=== PATIENT | male | born 1970 | race Caucasian/White ===

== ENCOUNTER 2016-12-11 03:07 | Emergency (ER) | payer OTHER ==
[2016-12-11] MEDS ORDERED: Sodium Chloride 0.9% 1000 ML 1,000 ML IV SCH (03:15)
--- NOTE | 2016-12-11 03:24 | ERPHSYRPT ---
- History of Present Illness Time Seen by Provider: 12/11/16 03:08 Source: patient, family (), EMS Exam Limitations: no limitations Physician History: AT WORK([employer]) ABOUT 70 MINUTES AGO PT WAS STANDING WORKING ON A VEHICLE WHEN HE SUDDENLY LOST CONSCIOUSNESS, FELL BACK AND HAD STIFFENING OF HIS BODY(UNKNOWN HOW LONG EPISODE LASTED). PT DENIES PREVIOUS SYNCOPE OR SEIZURE. PT DENIES CHEST PAIN, NECK PAIN, BACK PAIN, HEADACHE, NAUSEA, VOMITING , ABDOMINAL PAIN, SHORTNESS OF AIR, TINGLING/NUMBNESS, WEAKNESS. PT'S STATES PT POSSIBLY HAD A SEIZURE 2 YEARS AGO WHEN HE FELL AND FRACTURED HIS SHOULDER. PT WAS NEVER PLACED ON ANY SEIZURE MEDICATIONS. Allergies/Adverse Reactions: No Known Drug Allergies Allergy (Verified 12/11/16 03:46) Home Medications: Metoprolol Tartrate 50 mg PO DAILY 11/09/12 [History] Hydrocodon/Ibupr 7.5mg/200mg [Vicoprofen 7.5mg/200mg Tablet] 1 tab PO Q6HPRN PRN 12/11/16 [History] Lisinopril 10 mg [Zestril 10 MG] 10 mg PO DAILY 12/11/16 [History] Hx Tetanus, Diphtheria Vaccination/Date Given: No Hx Influenza Vaccination/Date Given: No Hx Pneumococcal Vaccination/Date Given: No - Past Medical History Pertinent Past Medical History: Yes Cardiac History: Hypertension Other Medical History: left kidney removed - Past Surgical History Past Surgical History: Yes Genitourinary: Kidney Surgery Other Surgical History: KIDNEY REMOVAL - Social History Smoking Status: Current some day smoker Exposure to second hand smoke: Yes Drug Use: none Patient Lives Alone: No - Review of Systems Constitutional: No Fever Respiratory: No Cough, No Dyspnea Cardiac: No Chest Pain Abdominal/Gastrointestinal: No Abdominal Pain, No Nausea, No Vomiting Musculoskeletal: No Back Pain, No Neck Pain Neurological: Other (SYNCOPE/SEIZURE TODAY), No Focal Weakness, No Headache, No Sensory Changes, No Speech Changes Endocrine: No Excessive Sweating All Other Systems: Reviewed and Negative Physical Exam - Nursing Vital Signs Nursing Vital Signs: Initial Vital Signs Temperature 97.8 F Temperature Source Oral Pulse Rate 83 Respiratory Rate 14 Blood Pressure [] 145/83 Pain Intensity 2 - [place] Coma Scale Best Eye Response ([place]): (4) open spontaneously Best Verbal Response ([place]): (5) oriented Best Motor Response ([place]): (6) obeys commands [place] Total: 15 - Physical Exam General Appearance: no apparent distress, alert Eye Exam: bilateral eye: PERRL, EOMI Ears, Nose, Throat Exam: pharynx normal, moist mucous membranes Neck Exam: normal inspection, non-tender, full range of motion Respiratory: lungs clear Cardiovascular: normal heart sounds Gastrointestinal: soft, normal bowel sounds Back Exam: normal range of motion, No vertebral tenderness Extremity Exam: normal inspection, normal range of motion, No pedal edema Peripheral Pulses: dorsalis-pedis (R): 3+, dorsalis-pedis (L): 3+ 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, 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, 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 SMALL LEFT PARIETAL SCALP HEMATOMA. NO UNDERLYING FRACTURE.) Ordered Tests: Active Orders 24 hr Category Date Time Status Accucheck STAT Care 12/11/16 03:15 Active Clean Catch Urine Specimen STAT Care 12/11/16 03:15 Active EKG-ER Only STAT Care 12/11/16 03:17 Active IV Insertion STAT Care 12/11/16 03:15 Active Pulse Oximetry (ED) STAT Care 12/11/16 03:15 Active Seizure Precautions -SCCHED STAT Care 12/11/16 03:15 Active CHEST 1 VIEW (PORTABLE) Stat Exams 12/11/16 03:17 Taken HEAD WITHOUT CONTRAST [CT] Stat Exams 12/11/16 03:16 Taken AMYLASE Stat Lab 12/11/16 03:22 Completed CBC W DIFF Stat Lab 12/11/16 03:22 Completed CMP Stat Lab 12/11/16 03:22 Completed LIPASE Stat Lab 12/11/16 03:22 Completed TROPONIN Stat Lab 12/11/16 03:22 Completed UA W/ MICROSCOPIC Stat Lab 12/11/16 04:52 Completed Urine Triage Profile Stat Lab 12/11/16 04:52 Completed Medication Summary Generic Name Dose Route Start Last Admin Trade Name Edith PRN Reason Stop Dose Admin Sodium Chloride 1,000 mls @ 100 mls/hr 12/11/16 03:15 12/11/16 04:14 Sodium Chloride 0.9% 1000 Ml IV 01/10/17 03:14 100 mls/hr .Q10H AYAN Administration Discontinued Medications Generic Name Dose Route Start Last Admin Trade Name Freq PRN Reason Stop Dose Admin Fosphenytoin Sodium Confirm 12/11/16 04:10 Cerebyx 50 Mg/Ml Administered 12/11/16 04:11 Dose 1,000 mg .ROUTE .STK-MED ONE Sodium Chloride Confirm 12/11/16 04:00 Sodium Chloride 0.9% 1000 Ml Administered 12/11/16 04:01 Dose 1,000 mls @ ud .ROUTE .STK-MED ONE Fosphenytoin Sodium 1,000 mg/ 120 mls @ 120 mls/hr 12/11/16 04:05 12/11/16 04 :20 Sodium Chloride IV 12/11/16 05:04 120 mls/hr STAT ONE Administration Sodium Chloride Confirm 12/11/16 04:09 Sodium Chloride 0.9% 100 Ml Ivpb Administered 12/11/16 04:10 Dose 100 mls @ ud IV .STK-MED ONE Lab/Rad Data: Laboratory Result Diagrams 12/11/16 03:22 12/11/16 03:22 Laboratory Results 12/11/16 12/11/16 12/11/16 Range/Units 04:52 04:52 03:22 WBC (4.0-10.5) K/mm3 RBC (4.1-5.6) M/mm3 Hgb (12.5-18.0) gm/dl Hct (42-50) % MCV (78-100) fl MCH (26-32) pg MCHC (32-36) g/dl RDW (11.5-14.0) % Plt Count (150-450) K/mm3 MPV (6-9.5) fl Gran % (36.0-66.0) % Lymphocytes % (24.0-44.0) % Monocytes % (0.0-12.0) % Eosinophils % (0.00-5.0) % Basophils % (0.0-0.4) % Basophils # (0-0.4) Sodium (136-145) mEq/L Potassium (3.5-5.1) mEq/L Chloride (98-107) mEq/L Carbon Dioxide (21-32) mEq/L Anion Gap (5-15) MEQ/L BUN (9-20) mg/dL Creatinine (0.55-1.30) mg/dl Estimated GFR ML/MIN Glucose (70-110) MG/DL Calcium (8.5-10.1) mg/dL Total Bilirubin (0.2-1.0) mg/dL AST (15-37) U/L ALT (12-78) U/L Alkaline Phosphatase (46-116) U/L Troponin I < 0.017 (0.000-0.056) ng/ml Serum Total Protein (6.4-8.2) gm/dL Albumin (3.4-5.0) g/dL Amylase 62 (25-115) U/L Lipase 172 (73-393) U/L Ur Collection Type CLEAN CATCH Urine Color YELLOW (YELLOW) Urine Appearance CLEAR (CLEAR) Urine pH 5.5 (5-6) Ur Specific [place] 1.025 (1.005-1.025) Urine Protein 30 (Negative) Urine Glucose (UA) NEGATIVE (NEGATIVE) mg/dL Urine Ketones NEGATIVE (NEGATIVE) Urine Nitrite NEGATIVE (NEGATIVE) Urine Bilirubin NEGATIVE (NEGATIVE) Urine Urobilinogen 1 (0-1) mg/dL Urine WBC (Auto) NEGATIVE (NEGATIVE) Urine RBC (Auto) TRACE-LYSED (0-5) Neville/ul Urine Microscopic RBC 0-2 (0-2) /HPF Ur Epithelial Cells RARE (FEW) /HPF Urine Bacteria RARE (NEGATIVE) /HPF Urine Opiates Level NEG. (NEGATIVE) Ur Methadone NEG. (NEGATIVE) Urine Barbiturates NEG. (NEGATIVE) Ur Phencyclidine (PCP) NEG. (NEGATIVE) Urine Amphetamine NEG. (NEGATIVE) U Benzodiazepine Level NEG. (NEGATIVE) Urine Cocaine NEG. (NEGATIVE) Urine Marijuana (THC) NEG. (NEGATIVE) Specimen Received 0130 0450 12/11/16 12/11/16 Range/Units 03:22 03:22 WBC 7.1 (4.0-10.5) K/mm3 RBC 4.81 (4.1-5.6) M/mm3 Hgb 14.4 (12.5-18.0) gm/dl Hct 44.5 (42-50) % MCV 92.5 (78-100) fl MCH 29.9 (26-32) pg MCHC 32.4 (32-36) g/dl RDW 12.7 (11.5-14.0) % Plt Count 248 (150-450) K/mm3 MPV 10.2 H (6-9.5) fl Gran % 65.1 (36.0-66.0) % Lymphocytes % 22.2 L (24.0-44.0) % Monocytes % 10.7 (0.0-12.0) % Eosinophils % 1.7 (0.00-5.0) % Basophils % 0.3 (0.0-0.4) % Basophils # 0.02 (0-0.4) Sodium 144 (136-145) mEq/L Potassium 4.0 (3.5-5.1) mEq/L Chloride 104 (98-107) mEq/L Carbon Dioxide 23.5 (21-32) mEq/L Anion Gap 20.2 H (5-15) MEQ/L BUN 16 (9-20) mg/dL Creatinine 1.06 (0.55-1.30) mg/dl Estimated GFR > 60 ML/MIN Glucose 88 (70-110) MG/DL Calcium 9.0 (8.5-10.1) mg/dL Total Bilirubin 0.6 (0.2-1.0) mg/dL AST 30 (15-37) U/L ALT 52 (12-78) U/L Alkaline Phosphatase 65 (46-116) U/L Troponin I (0.000-0.056) ng/ml Serum Total Protein 7.3 (6.4-8.2) gm/dL Albumin 4.2 (3.4-5.0) g/dL Amylase (25-115) U/L Lipase (73-393) U/L Ur Collection Type Urine Color (YELLOW) Urine Appearance (CLEAR) Urine pH (5-6) Ur Specific [place] (1.005-1.025) Urine Protein (Negative) Urine Glucose (UA) (NEGATIVE) mg/dL Urine Ketones (NEGATIVE) Urine Nitrite (NEGATIVE) Urine Bilirubin (NEGATIVE) Urine Urobilinogen (0-1) mg/dL Urine WBC (Auto) (NEGATIVE) Urine RBC (Auto) (0-5) Neville/ul Urine Microscopic RBC (0-2) /HPF Ur Epithelial Cells (FEW) /HPF Urine Bacteria (NEGATIVE) /HPF Urine Opiates Level (NEGATIVE) Ur Methadone (NEGATIVE) Urine Barbiturates (NEGATIVE) Ur Phencyclidine (PCP) (NEGATIVE) Urine Amphetamine (NEGATIVE) U Benzodiazepine Level (NEGATIVE) Urine Cocaine (NEGATIVE) Urine Marijuana (THC) (NEGATIVE) Specimen Received - Departure Time of Disposition: 05:57 Departure Disposition: Home Clinical Impression: SYNCOPE, SEIZURE, HEAD CONTUSION, HTN Condition: Fair Critical Care Time: No Referrals: SHAWANDA BROCK [Primary Care Provider] - Instructions: Seizure Disorder -- Adult Additional Instructions: FOLLOW UP WITH PRIVATE DOCTOR TODAY. DO NOT DRIVE OR CLIMB UNTIL CLEARED BY PRIVATE DOCTOR. Prescriptions: Phenytoin Sod Extended 100 mg* [Dilantin 100 MG] 100 mg PO BID #60 capsule
[2016-12-11 03:30] LABS: BASOPHIL % 0.3 % (0.0-0.4); Eosinophil % 1.7 % (0.00-5.0); Granulocytes % 65.1 % (36.0-66.0); Lymphocytes % 22.2 % (24.0-44.0); Mean Cell Volume 92.5 fl (78-100); Mean Corpuscular Hemoglobin 29.9 pg (26-32); Mean Platelet Volume 10.2 fl (6-9.5); Monocytes % 10.7 % (0.0-12.0); Platelet Count 248 K/mm3 (150-450); Red Blood Count 4.81 M/mm3 (4.1-5.6); Red Cell Distribution Width 12.7 % (11.5-14.0); White Blood Count 7.1 K/mm3 (4.0-10.5)
[2016-12-11] MEDS ORDERED: Sodium Chloride 0.9% 1000 ML 1,000 ML ONE (04:00)
[2016-12-11] MEDS ORDERED: cereBYX 50 MG/ML*** 1,000 MG in Sodium Chloride 0.9% 100 ML IVPB 100 ML IV ONE (04:05)
[2016-12-11] MEDS ORDERED: Sodium Chloride 0.9% 100 ML IVPB 100 ML IV ONE (04:09)
[2016-12-11] MEDS ORDERED: cereBYX 50 MG/ML ONE (04:10)
[2016-12-11 04:11] LABS: ALBUMIN 4.2 g/dL (3.4-5.0); ALKALINE PHOSPHATASE 65 U/L (46-116); ANION GAP 20.2 MEQ/L (5-15); BILIRUBIN,TOTAL 0.6 mg/dL (0.2-1.0); BLOOD UREA NITROGEN 16 mg/dL (9-20); CHLORIDE 104 mEq/L (98-107); Carbon Dioxide 23.5 mEq/L (21-32); Glucose 88 MG/DL (70-110); SGOT/AST 30 U/L (15-37); SGPT/ALT 52 U/L (12-78); SODIUM 144 mEq/L (136-145); Total Protein 7.3 gm/dL (6.4-8.2)
[2016-12-11 04:20] LABS: LIPASE 172 U/L (73-393)
[2016-12-11 04:23] LABS: TROPONIN < 0.017 ng/ml (0.000-0.056)
[2016-12-11 05:52] LABS: Collection Type CLEAN CATCH
[2016-12-11 05:53] LABS: COMPLETE URINE MICROSCOPIC? YES; Ph 5.5 (5-6)
[2016-12-11 05:55] LABS: Bacteria RARE /HPF (NEGATIVE); Epithelial Cells RARE /HPF (FEW)
[2016-12-11 06:47] VITALS: BP 150/97; PULSE 78; O2SAT 95
--- NOTE | 2016-12-11 08:39 | XRAY ---
Indication: Seizure and syncope. Multiple contiguous axial images obtained through the head without contrast. Comparison: None Normal-appearing brain parenchyma, ventricles, and bony calvarium. Small left parietal scalp hematoma near the vertex. Visualized paranasal sinuses and mastoid air cells are pneumatized and clear. Impression: Left-sided scalp hematoma. No acute intracranial abnormalities. Comment: Preliminary interpretation was made by [facility]. No discrepancy. CT DI 49.71
--- NOTE | 2016-12-11 08:39 | XRAY ---
Indication: Seizure. Syncope. Comparison: None Portable chest demonstrates a few calcified granulomas. Remaining heart, lungs, and bony thorax normal.
== END 2016-12-11 06:10 | disposition home or self-care (01) ==
LOC: ED 03:07
DX: R55 Syncope and collapse (principal); R56.9 Unspecified convulsions; S00.93XA Contusion of unspecified part of head, initial encounter; S00.01XA Abrasion of scalp, initial encounter; I10 Essential (primary) hypertension; W18.39XA Other fall on same level, initial encounter
CPT/HCPCS: 36415; 70450; 71010; 80053; 80307; 81000; 82150; 82962; 83690; 84484; 85025; 93005; 96360; 96361; 99283; Q2009

== ENCOUNTER 2020-02-01 06:35 | Emergency (ER) | payer BC, OTHER ==
--- NOTE | 2020-02-01 06:49 | ERPHSYRPT ---
- History of Present Illness Source: patient, EMS Exam Limitations: intoxication Hx Tetanus, Diphtheria Vaccination/Date Given: No Hx Influenza Vaccination/Date Given: No Hx Pneumococcal Vaccination/Date Given: No <ЕЛЕНА ZAMAN - Last Filed: 02/01/20 07:13> <LINA RACHEL - Last Filed: 02/01/20 08:31> - History of Present Illness Time Seen by Provider: 02/01/20 06:35 Physician History: About 1 hour ago ems was called because pt had decreased responsiveness. blood glucose per ems was 67, pt was given 1/2 amp of d-50 after which blood glucose increased to 164. pt states he drank almost 1/5 of whisky tonight; denies cough , fever, chest pain, shortness of air, abdominal pain, weakness, tingling/ numbness; admits to headache. (ЕЛЕНА ZAMAN) Allergies/Adverse Reactions: No Known Drug Allergies Allergy (Verified 02/01/20 07:15) Home Medications: No Reportable Medications [No Reported Medications] 02/01/20 [History] Travel Risk - International Travel Have you traveled outside of the country in past 3 weeks: No Have you or anyone close to you been diagnosed with or: No Do your reside in a community with a known COVID-19 case?: No - Coronavirus Screening Has patient experienced Coronavirus symptoms: No <ЕЛЕНА ZAMAN - Last Filed: 02/01/20 07:13> - Review of Systems Constitutional: No Fever Ears, Nose, & Throat: No Throat Pain Respiratory: No Dyspnea Cardiac: No Chest Pain Abdominal/Gastrointestinal: No Abdominal Pain, No Nausea, No Vomiting Genitourinary Symptoms: No Dysuria Skin: No Rash Neurological: Headache (today), Other (decreased responsiveness.) Psychological: Alcohol Abuse All Other Systems: Reviewed and Negative <ЕЛЕНА ZAMAN - Last Filed: 02/01/20 07:13> - Past Medical History Pertinent Past Medical History: Yes Cardiac History: Hypertension Other Medical History: left kidney removed - Past Surgical History Past Surgical History: Yes Genitourinary: Kidney Surgery Other Surgical History: KIDNEY REMOVAL - Social History Smoking Status: Current some day smoker Exposure to second hand smoke: Yes Drug Use: none Patient Lives Alone: No <ЕЛЕНА ZAMAN - Last Filed: 02/01/20 07:13> - Physical Exam General Appearance: lethargy Eye Exam: bilateral eye: PERRL, EOMI Ears, Nose, Throat Exam: pharynx normal Neck Exam: normal inspection Respiratory: lungs clear Cardiovascular: normal heart sounds Gastrointestinal: soft, normal bowel sounds Back Exam: other (fair rom) Extremity Exam: No pedal edema Peripheral Pulses: dorsalis-pedis (R): 2+, dorsalis-pedis (L): 2+ Mental Status: No 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 (oriented to person only.) 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, tongue midline, No facial droop Motor/Sensory: no motor deficit, no sensory deficit Skin Exam: warm, dry SpO2 Interpretation: borderline oxygenation SpO2: 93 O2 Delivery: Room Air <ЕЛЕНА ZAMAN - Last Filed: 02/01/20 07:13> <LINA RACHEL - Last Filed: 02/01/20 08:31> - Nursing Vital Signs Nursing Vital Signs: Initial Vital Signs Temperature 97.5 F 02/01/20 06:38 Pulse Rate 111 H 02/01/20 06:38 Respiratory Rate 16 02/01/20 06:38 Blood Pressure 174/123 02/01/20 06:38 O2 Sat by Pulse Oximetry 93 L 02/01/20 06:38 - Course Nursing assessment & vital signs reviewed: Yes EKG Interpreted by Me: RATE (108), Sinus Tach, NORMAL AXIS, Non-specific ST Changes, Other (PVC) <JUNIEЕЛЕНА - Last Filed: 02/01/20 07:13> <LINA RACHEL - Last Filed: 02/01/20 08:31> Ordered Tests: Active Orders 24 hr Category Date Time Status Accucheck STAT Care 02/01/20 06:51 Active EKG-ER Only STAT Care 02/01/20 06:49 Active IV Insertion STAT Care 02/01/20 06:49 Active CHEST 1 VIEW (PORTABLE) Stat Exams 02/01/20 06:50 Taken HEAD WITHOUT CONTRAST [CT] Stat Exams 02/01/20 06:52 Taken ACETAMINOPHEN Stat Lab 02/01/20 07:05 Completed AMYLASE Stat Lab 02/01/20 07:05 Completed CBC W DIFF Stat Lab 02/01/20 07:05 Completed CMP Stat Lab 02/01/20 07:05 Completed ETHYL ALCOHOL Stat Lab 02/01/20 07:05 Completed LIPASE Stat Lab 02/01/20 07:05 Completed TROPONIN Q3H Lab 02/01/20 07:05 Completed TROPONIN Q3H Lab 02/01/20 10:00 Ordered TROPONIN Q3H Lab 02/01/20 13:00 Ordered TROPONIN Q3H Lab 02/01/20 16:00 Ordered TROPONIN Q3H Lab 02/01/20 19:00 Ordered UA W/RFX UR CULTURE Stat Lab 02/01/20 06:49 Uncollected Urine Triage Profile Stat Lab 02/01/20 06:49 Uncollected Medication Summary Generic Name Dose Route Start Last Admin Trade Name Freq PRN Reason Stop Dose Admin Sodium Chloride 1,000 mls @ 100 mls/hr 02/01/20 07:00 02/01/20 07:56 Sodium Chloride 0.9% 1000 Ml IV 03/02/20 06:59 999 mls/hr .Q10H AYAN Administration Lab/Rad Data: Laboratory Result Diagrams 02/01/20 07:05 02/01/20 07:05 Laboratory Results 02/01/20 02/01/20 02/01/20 Range/Units 07:05 07:05 07:05 WBC (4.0-10.5) K/mm3 RBC (4.1-5.6) M/mm3 Hgb (12.5-18.0) gm/dl Hct (42-50) % MCV (78-100) fl MCH (26-32) pg MCHC (32-36) g/dl RDW (11.5-14.0) % Plt Count (150-450) K/mm3 MPV (7.5-11.0) fl Gran % (36.0-66.0) % Eos # (Auto) (0-0.5) Absolute Lymphs (auto) (1.0-4.6) Absolute Monos (auto) (0.0-1.3) Lymphocytes % (24.0-44.0) % Monocytes % (0.0-12.0) % Eosinophils % (0.00-5.0) % Basophils % (0.0-0.4) % Absolute Granulocytes (1.4-6.9) Basophils # (0-0.4) Sodium 150 H* (137-145) mmol/L Potassium 4.0 (3.5-5.1) mmol/L Chloride 111 H (98-107) mmol/L Carbon Dioxide 26 (22-30) mmol/L Anion Gap 16.8 H (5-15) MEQ/L BUN 12 (9-20) mg/dL Creatinine 0.78 (0.66-1.25) mg/dL Estimated GFR > 60.0 ML/MIN Glucose 119 H (74-106) mg/dL Calcium 8.7 (8.4-10.2) mg/dL Total Bilirubin 0.40 (0.2-1.3) mg/dL AST 51 (17-59) U/L ALT 29 (0-50) U/L Alkaline Phosphatase 93 (38-126) U/L Troponin I < 0.012 (0.000-0.034) ng/mL Serum Total Protein 8.1 (6.3-8.2) g/dL Albumin 4.8 (3.5-5.0) g/dL Amylase 78 (30-110) U/L Lipase 178 (23-300) U/L Acetaminophen < 10 L (10-30) ug/ml Ethyl Alcohol 467 H (0-10) mg/dL 01/31/ Range/Units 07:05 WBC 9.9 (4.0-10.5) K/mm3 RBC 4.89 (4.1-5.6) M/mm3 Hgb 15.8 (12.5-18.0) gm/dl Hct 47.1 (42-50) % MCV 96.3 (78-100) fl MCH 32.3 H (26-32) pg MCHC 33.5 (32-36) g/dl RDW 13.3 (11.5-14.0) % Plt Count 225 (150-450) K/mm3 MPV 10.1 (7.5-11.0) fl Gran % 58.3 (36.0-66.0) % Eos # (Auto) 0.37 (0-0.5) Absolute Lymphs (auto) 3.10 (1.0-4.6) Absolute Monos (auto) 0.66 (0.0-1.3) Lymphocytes % 31.2 (24.0-44.0) % Monocytes % 6.6 (0.0-12.0) % Eosinophils % 3.7 (0.00-5.0) % Basophils % 0.2 (0.0-0.4) % Absolute Granulocytes 5.79 (1.4-6.9) Basophils # 0.02 (0-0.4) Sodium (137-145) mmol/L Potassium (3.5-5.1) mmol/L Chloride (98-107) mmol/L Carbon Dioxide (22-30) mmol/L Anion Gap (5-15) MEQ/L BUN (9-20) mg/dL Creatinine (0.66-1.25) mg/dL Estimated GFR ML/MIN Glucose (74-106) mg/dL Calcium (8.4-10.2) mg/dL Total Bilirubin (0.2-1.3) mg/dL AST (17-59) U/L ALT (0-50) U/L Alkaline Phosphatase (38-126) U/L Troponin I (0.000-0.034) ng/mL Serum Total Protein (6.3-8.2) g/dL Albumin (3.5-5.0) g/dL Amylase (30-110) U/L Lipase (23-300) U/L Acetaminophen (10-30) ug/ml Ethyl Alcohol (0-10) mg/dL <ЕЛЕНА ZAMAN - Last Filed: 02/01/20 07:13> - Progress Progress: improved Counseled pt/family regarding: drug and/or alcohol abuse, lab results, diagnosis , need for follow-up, rad results <LINA RACHEL - Last Filed: 02/01/20 08:31> - Progress Progress Note: 02/01/20 08:29 feeling better, no more confusion. at bedside (VIRGINIE,LINA) <ЕЛЕНА ZAMAN - Last Filed: 02/01/20 07:13> - Departure Departure Disposition: Home Critical Care Time: Yes Critical Care Time(excluding separately billable procedures): Critical 30-74 mins <LINA RACHEL - Last Filed: 02/01/20 08:31> - Departure Clinical Impression: Alcohol intoxication Qualifiers: Complication of substance-induced condition: with delirium Qualified Code(s): F10.921 - Alcohol use, unspecified with intoxication delirium Condition: Stable Referrals: SHAWANDA BROCK [Primary Care Provider] - Instructions: Alcohol Use - When Is Drinking a Problem?, Alcohol Abuse and Alcoholism (DC), Effects of Alcohol on Your Health, Alcohol Poisoning (DC) Additional Instructions: Discharge/Care Plan ЕЛЕНА ROMAN was seen on 02/01/20 in the Emergency Room. The patient was counseled regarding Diagnosis,Lab results, Imaging studies, need for follow up and when to return to the Emergency Room. Prescriptions given: Discharge Note I have spoken with the patient and/or caregivers. I have explained the patient' s condition, diagnosis and treatment plan based on the information available to me at this time. I have answered the patient's and/or caregiver's questions and addressed any concerns. The patient and/or caregivers have as good understanding of the patient's diagnosis, condition and treatment plan as can be expected at this point. The vital signs have been stable. The patient's condition is stable and appropriate for discharge from the emergency department. The patient will pursue further outpatient evaluation with the primary care physician or other designated or consulting physician as outlined in the discharge instructions. The patient and/or caregivers are agreeable to this plan of care and follow-up instructions have been explained in detail. The patient and/or caregivers have received these instruction. The patient/and or caregivers are aware that any significant change in condition or worsening of symptoms should prompt an immediate return to this or the closest emergency department or call 911. ЕЛЕНА ROMAN was seen on 02/01/20 n the Emergency Room. At that time you were treated for an emergent condition, during your visit Laboratory, Radiology and/or other procedures may have been ordered. It is very important that you follow-up with your Primary Care Physician SHAWANDA BROCK within the next 24-48 hours to review your Emergency Room visit and the final results of testing that was ordered. Some test results such as Urine Cultures, Blood Cultures, and other cultures if ordered will not be finalized for 24-48 hours. If you do not have a Primary Care Provider please call the medical records department at [phone] ext [phone] to obtain a copy of your results or you may sign into our patient portal to obtain these results by visiting us @ [email or web address] and completing the following steps: 1. Click on the Patient Portal link 2. Click the Patient Self Enrollment Link to complete the enrollment form and entering your 3. Once the enrollment form is completed you will receive an email with a temporary ID and password at the email address you provided. 4. Next choose a user name and password. Your user name must be at least 4 characters long and your password must be at least 4 characters long. 5. Choose a security question from the list and provide your answer to the question. If you already have signed into the Health Portal you may access your Health Care Information 04/06 by the following steps: 1. Login to our website @ [email or web address] 2. Enter your original user name and password. FAQS The [facility] Health Portal is an online tool that contains your Lab Results, Radiology Reports, Visit History, Discharge Instructions and Health Summary Lab and Radiology Results will not be available for 72 hours on the portal. The Portal is a secure site, passwords are encryted and URLs are re-written so they cannot be copied and pasted. You and authorized family members are the only ones who can access your Portal. Also there is a timeout feature that protects your information if you leave the Portal page open. If you have technical difficulty please use the Contact Us link on the page this will allow you to submit any questions you have regarding the Portal or you may contact the Medical Record Department at [phone] ext [phone].
[2020-02-01] MEDS ORDERED: Sodium Chloride 0.9% 1000 ML 1,000 ML IV SCH (07:00)
[2020-02-01 07:20] LABS: Absolute Neutrophil Ct (ANC) 5.79 (1.4-6.9); BASOPHIL % 0.2 % (0.0-0.4); Basophil (Absolute #) 0.02 (0-0.4); Eosinophil % 3.7 % (0.00-5.0); Eosinophil (Absolute #) 0.37 (0-0.5); Hematocrit 47.1 % (42-50); Hemoglobin 15.8 gm/dl (12.5-18.0); Lymphocytes % 31.2 % (24.0-44.0); Mean Cell Volume 96.3 fl (78-100); Mean Corpuscular Hemoglobin 32.3 pg (26-32); Mean Corpuscular Hgb Concent. 33.5 g/dl (32-36); Mean Platelet Volume 10.1 fl (7.5-11.0); Monocyte (Absolute #) 0.66 (0.0-1.3); Monocytes % 6.6 % (0.0-12.0); Neutrophil % 58.3 % (36.0-66.0); Platelet Count 225 K/mm3 (150-450); Red Blood Count 4.89 M/mm3 (4.1-5.6); Red Cell Distribution Width 13.3 % (11.5-14.0); White Blood Count 9.9 K/mm3 (4.0-10.5)
[2020-02-01 07:36] LABS: ALBUMIN 4.8 g/dL (3.5-5.0); ALKALINE PHOSPHATASE 93 U/L (38-126); AMYLASE 78 U/L (30-110); ANION GAP 16.8 MEQ/L (5-15); BLOOD UREA NITROGEN 12 mg/dL (9-20); CHLORIDE 111 mmol/L (98-107); Calcium 8.7 mg/dL (8.4-10.2); Carbon Dioxide 26 mmol/L (22-30); Creatinine 1 0.78 mg/dL (0.66-1.25); Glucose 119 mg/dL (74-106); LIPASE 178 U/L (23-300); SGOT/AST 51 U/L (17-59); SGPT/ALT 29 U/L (0-50); Total Protein 8.1 g/dL (6.3-8.2)
[2020-02-01 07:45] LABS: ACETAMINOPHEN < 10 ug/ml (10-30); ETHYL ALCOHOL 467 mg/dL (0-10); SODIUM 150 mmol/L (137-145)
[2020-02-01] MEDS ORDERED: Sodium Chloride 0.9% 1000 ML 1,000 ML ONE (07:56)
[2020-02-01 08:49] VITALS: BP 170/90; PULSE 98; O2SAT 95
--- NOTE | 2020-02-01 10:11 | XRAY ---
Indication: Acute mental status change. Multiple contiguous axial images obtained through the abdomen without contrast. Comparison: December 11, 2016. Again normal appearing brain parenchyma, ventricles, and bony calvarium. Mild mucosal thickening of both ethmoid and inferior maxillary sinuses cells. Mastoid air cells are clear. Impression: Paranasal sinus disease. Remaining CT head without contrast exam is negative. Comment: Preliminary interpretation was made by [facility]. No critical discrepancy.
--- NOTE | 2020-02-01 10:13 | XRAY ---
Indication: Acute mental status change. Comparison: December 11, 2016. Portable chest less than inflated with now minimal left base subsegmental atelectasis/scarring. Again a few incidental tiny calcified granulomas. No focal infiltrate, consolidation, or large effusion. Heart is not enlarged for AP portable technique. Bony thorax intact with minimal degenerative changes. Impression: Nonacute chest with chronic features.
== END 2020-02-01 08:48 | disposition home or self-care (01) ==
LOC: ED 06:35
DX: F10.921 Alcohol use, unspecified with intoxication delirium (principal); Z72.0 Tobacco use
CPT/HCPCS: 70450; 80053; 80307; 82150; 83690; 84484; 85025; 93005; 96360; 99291; G0481; 36000; 36415; 71045; 99284; G0480

== ENCOUNTER 2020-07-18 12:01 | Emergency (ER) | payer BC ==
[2020-07-18 12:07] VITALS: BP 159/100; PULSE 106; O2SAT 96
--- NOTE | 2020-07-18 12:17 | ERPHSYRPT ---
- History of Present Illness Time Seen by Provider: 07/18/20 12:12 Source: patient Exam Limitations: no limitations Patient Subjective Stated Complaint: fever Triage Nursing Assessment: pt to ED c/o fever, body aches, and some dry cough x 1 day. states "i just feel like a truck ran over me, yesterday was worse though." denies NVD or SOB. no covid contact that he is aware of. heart sounds clear, lungs clear and equal bilat. afebrile on arrival. reports temp max of 100 at home. 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 chest still clear and abd soft nontender without peritoneal signs . normal pulse Ox on RA. pt would like to have swab for covid but the outpt places were closed today so he came here. He feels OK to go hame and care for self and will SQ at home. Timing/Duration: day(s) Cough Quality/Degree: mild Possible Cause: no prior episodes Modifying Factors: Improves With: nothing Associated Symptoms: fever, cough, muscle aches Allergies/Adverse Reactions: No Known Drug Allergies Allergy (Verified 07/18/20 12:08) Home Medications: No Reportable Medications [No Reported Medications] 02/01/20 [History] Hx Tetanus, Diphtheria Vaccination/Date Given: No Hx Influenza Vaccination/Date Given: No Hx Pneumococcal Vaccination/Date Given: No Travel Risk - International Travel Have you traveled outside of the country in past 3 weeks: No - Coronavirus Screening Are you exhibiting any of the following symptoms?: Yes Symptoms: Fever, Cough: New Onset, Headaches/Body Aches/Fatigue Close contact with a COVID-19 positive Pt in past 14-21 Days: No - Review of Systems Constitutional: Fever, Malaise, No Chills Eyes: No Symptoms Ears, Nose, & Throat: No Symptoms Respiratory: Cough, No Dyspnea Cardiac: No Chest Pain, No Edema, No Syncope Abdominal/Gastrointestinal: Nausea, No Abdominal Pain, No Vomiting, No Diarrhea Genitourinary Symptoms: No Dysuria Musculoskeletal: Myalgias, No Back Pain, No Neck Pain Skin: No Rash Neurological: No Dizziness, No Focal Weakness, No Sensory Changes Psychological: No Symptoms Endocrine: No Symptoms Hematologic/Lymphatic: No Symptoms Immunological/Allergic: No Symptoms All Other Systems: Reviewed and Negative - Past Medical History Pertinent Past Medical History: Yes Cardiac History: Hypertension Other Medical History: left kidney removed - Past Surgical History Past Surgical History: Yes Genitourinary: Kidney Surgery Other Surgical History: KIDNEY REMOVAL - Social History Smoking Status: Current some day smoker Exposure to second hand smoke: Yes Drug Use: none Patient Lives Alone: No - Nursing Vital Signs Nursing Vital Signs: Initial Vital Signs Temperature 98.6 F 07/18/20 12:03 Pulse Rate 106 H 07/18/20 12:03 Respiratory Rate 18 07/18/20 12:03 Blood Pressure 159/100 07/18/20 12:03 O2 Sat by Pulse Oximetry 96 07/18/20 12:03 Pain Scale Pain Intensity 0 - Physical Exam General Appearance: no apparent distress, alert Eye Exam: PERRL/EOMI, eyes nml inspection Ears, Nose, Throat Exam: normal ENT inspection, TMs normal, pharynx normal, moist mucous membranes Neck Exam: normal inspection, non-tender, supple, full range of motion Respiratory Exam: normal breath sounds, lungs clear, No respiratory distress, No accessory muscle use, No wheezing, No stridor Cardiovascular Exam: regular rate/rhythm, normal heart sounds Gastrointestinal/Abdomen Exam: soft, No tenderness, No mass, No guarding Rectal Exam: deferred Back Exam: normal inspection, No CVA tenderness, No vertebral tenderness Extremity Exam: normal inspection, normal range of motion Neurologic Exam: alert, 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, cooperative, normal mood/affect, sensation nml, No motor deficits Skin Exam: normal color, warm, dry, No rash Lymphatic Exam: No adenopathy SpO2 Interpretation: normal SpO2: 96 - Course Nursing assessment & vital signs reviewed: Yes - Progress Progress: unchanged Air Movement: good Progress Note: 07/18/20 12:22 discussed further w/u with pt but he is most comfortable with DC to home without further w/u or admit at this time and that is a reasonable choice given his clinical picture at this time. He will f/u PCP and return if symptoms increase. Blood Culture(s) Obtained: No Antibiotics given: No Counseled pt/family regarding: diagnosis, need for follow-up - Departure Departure Disposition: Home Clinical Impression: Person under investigation for COVID-19 Condition: Good Critical Care Time: No Referrals: SHAWANDA BROCK [Primary Care Provider] - Instructions: Coronavirus Disease 2019 (COVID-19) (DC), Fever, Adult (DC) Additional Instructions: followup with your Dr to recheck blood pressure which was some elevated at this visit also. the Covid test will take 1-2 days to come back so you will need to self quarantine at home until we know. then followup with your Dr. depending on the result. Return meantime if you get short of breath or are too weak or any other concerns.
== END 2020-07-18 12:34 | disposition home or self-care (01) ==
LOC: ED 12:01
DX: R50.9 Fever, unspecified (principal); R05 Cough; Z20.89 Contact with and (suspected) exposure to other communicable diseases; I10 Essential (primary) hypertension
CPT/HCPCS: 99283; U0003

== ENCOUNTER 2021-08-12 10:56 | Emergency (ER) | payer BC, OTHER ==
[2021-08-12] MEDS ORDERED: APRESOLINE 20 MG/ML INJ IV ONE (11:28)
[2021-08-12] MEDS ORDERED: APRESOLINE 20 MG/ML INJ ONE (11:33)
--- NOTE | 2021-08-12 11:43 | ERPHSYRPT ---
- History of Present Illness Time Seen by Provider: 08/12/21 10:59 Source: patient Exam Limitations: no limitations Patient Subjective Stated Complaint: Pt was at the [facility] for a new hire physical and his blood pressure was 240/? and they sent him here to the ER Triage Nursing Assessment: Pt brought to the ER by his , hypertensive, d enies pain, asymptomatic, pulses normal, skin n/w/d, no difficulties breathing, doesn't appear to be in any distress Physician History: 50 years old male with history of tobacco abuse, left-sided nephrectomy, hypertension on metoprolol presented in the ER after it was noticed he has a blood pressure of 240 systolic at a new higher physical exam. Patient denies any headache, blurry vision, numbness tingling focal weakness. Denies any chest pain palpitations or shortness of breath. No abdominal pain nausea or vomiting. Patient reports usually his blood pressure stays around 150 systolic at home. He is currently asymptomatic. Allergies/Adverse Reactions: No Known Drug Allergies Allergy (Verified 08/12/21 11:12) Home Medications: Metoprolol Succinate 50 mg [Toprol Xl 50 MG] 50 mg PO DAILY 08/12/21 [History] Hx Tetanus, Diphtheria Vaccination/Date Given: No Hx Influenza Vaccination/Date Given: No Hx Pneumococcal Vaccination/Date Given: No Travel Risk - International Travel Have you traveled outside of the country in past 3 weeks: No - Coronavirus Screening Are you exhibiting any of the following symptoms?: No Close contact with a COVID-19 positive Pt in past 14-21 Days: No - Vaccine Status Have you recieved a Covid-19 vaccination: Yes 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: [employer] - Vaccination Dates Date of 2cond Vaccination (if applicable): 07/09/2021 - Review of Systems Constitutional: No Symptoms Eyes: No Symptoms Ears, Nose, & Throat: No Symptoms Respiratory: No Symptoms Cardiac: No Symptoms Abdominal/Gastrointestinal: No Symptoms Genitourinary Symptoms: No Symptoms Musculoskeletal: No Symptoms Skin: No Symptoms Neurological: No Symptoms Psychological: No Symptoms Endocrine: No Symptoms Hematologic/Lymphatic: No Symptoms Immunological/Allergic: No Symptoms - Past Medical History Pertinent Past Medical History: Yes Cardiac History: Hypertension Other Medical History: left kidney removed - Past Surgical History Past Surgical History: Yes Genitourinary: Kidney Surgery Musculoskeletal: Orthopedic Surgery Other Surgical History: KIDNEY REMOVAL - Social History Smoking Status: Former smoker Exposure to second hand smoke: No Drug Use: none Patient Lives Alone: No - Nursing Vital Signs Nursing Vital Signs: Initial Vital Signs Temperature 97.8 F 08/12/21 10:59 Pulse Rate 61 08/12/21 10:59 Respiratory Rate 9 L 08/12/21 10:59 Blood Pressure 208/130 08/12/21 10:59 O2 Sat by Pulse Oximetry 100 08/12/21 10:59 Pain Scale Pain Intensity 0 - Physical Exam General Appearance: no apparent distress, alert Eye Exam: PERRL/EOMI, eyes nml inspection Ears, Nose, Throat Exam: normal ENT inspection, TMs normal, pharynx normal, moist mucous membranes Neck Exam: normal inspection, non-tender, supple, full range of motion Respiratory Exam: normal breath sounds, lungs clear Cardiovascular Exam: regular rate/rhythm, normal heart sounds Gastrointestinal/Abdomen Exam: soft, normal bowel sounds, No tenderness Back Exam: normal inspection, normal range of motion Extremity Exam: normal inspection, normal range of motion, pelvis stable Neurologic Exam: alert, 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, 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, 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, normal mood/affect, nml cerebellar function, nml station & gait, sensation nml, No motor deficits Skin Exam: normal color SpO2 Interpretation: normal SpO2: 100 O2 Delivery: Room Air - Course EKG Interpreted by Me: RATE (62), Sinus Rhythm, NORMAL AXIS, NORMAL INTERVALS, Other (Ventricular hypertrophy pattern) Ordered Tests: Active Orders 24 hr Category Date Time Status Product Support Analyst STAT Care 08/12/21 11:27 Completed EKG-ER Only STAT Care 08/12/21 11:26 Completed CHEST 1 VIEW (PORTABLE) Stat Exams 08/12/21 11:27 Completed CBC W DIFF Stat Lab 08/12/21 11:30 Completed CMP Stat Lab 08/12/21 11:30 Completed NT PRO BNP Stat Lab 08/12/21 11:30 Completed TROPONIN Q3H Lab 08/12/21 11:30 Completed UA W/RFX UR CULTURE Stat Lab 08/12/21 11:34 Completed Medication Summary Discontinued Medications Generic Name Dose Route Start Last Admin Trade Name Freq PRN Reason Stop Dose Admin Hydralazine HCl 10 mg 08/12/21 11:28 08/12/21 11:35 Apresoline 20 Mg/Ml Inj IV 08/12/21 11:29 10 mg STAT ONE Administration Hydralazine HCl Confirm 08/12/21 11:33 Apresoline 20 Mg/Ml Inj Administered 08/12/21 11:34 Dose 20 mg .ROUTE .STK-MED ONE Lab/Rad Data: Laboratory Result Diagrams 08/12/21 11:30 08/12/21 11:30 Laboratory Results 08/12/21 08/12/21 08/12/21 Range/Units 11:34 11:30 11:30 WBC (4.0-10.5) K/mm3 RBC (4.1-5.6) M/mm3 Hgb (12.5-18.0) gm/dl Hct (42-50) % MCV (78-100) fl MCH (26-32) pg MCHC (32-36) g/dl RDW (11.5-14.0) % Plt Count (150-450) K/mm3 MPV (7.5-11.0) fl Gran % (36.0-66.0) % Eos # (Auto) (0-0.5) Absolute Lymphs (auto) (1.0-4.6) Absolute Monos (auto) (0.0-1.3) Lymphocytes % (24.0-44.0) % Monocytes % (0.0-12.0) % Eosinophils % (0.00-5.0) % Basophils % (0.0-0.4) % Absolute Granulocytes (1.4-6.9) Basophils # (0-0.4) Sodium 136 L (137-145) mmol/L Potassium 4.2 (3.5-5.1) mmol/L Chloride 99 (98-107) mmol/L Carbon Dioxide 23 (22-30) mmol/L Anion Gap 18.8 H (5-15) MEQ/L BUN 13 (9-20) mg/dL Creatinine 0.81 (0.66-1.25) mg/dL Estimated GFR > 60.0 ML/MIN Glucose 115 H (74-106) mg/dL Calcium 9.5 (8.4-10.2) mg/dL Total Bilirubin 0.90 (0.2-1.3) mg/dL AST 35 (17-59) U/L ALT 25 (0-50) U/L Alkaline Phosphatase 63 (38-126) U/L Troponin I < 0.012 (0.000-0.034) ng/mL NT-Pro-B Natriuret Pep 128 (0-450) pg/mL Serum Total Protein 8.0 (6.3-8.2) g/dL Albumin 5.1 H (3.5-5.0) g/dL Urine Color STRAW (YELLOW) Urine Appearance CLEAR (CLEAR) Urine pH 6.0 (5-6) Ur Specific [place] 1.003 (1.005-1.025) Urine Protein NEGATIVE (Negative) Urine Ketones NEGATIVE (NEGATIVE) Urine Blood NEGATIVE (0-5) Neville/ul Urine Nitrite NEGATIVE (NEGATIVE) Urine Bilirubin NEGATIVE (NEGATIVE) Urine Urobilinogen NEGATIVE (0-1) mg/dL Ur Leukocyte Esterase NEGATIVE (NEGATIVE) Urine WBC (Auto) NONE (0-5) /HPF U Epithel Cells (Auto) NONE (FEW) /HPF Urine Culture Reflexed NO (NO) Urine Glucose NEGATIVE (NEGATIVE) mg/dL 08/12/21 Range/Units 11:30 WBC 9.4 (4.0-10.5) K/mm3 RBC 5.19 (4.1-5.6) M/mm3 Hgb 16.2 (12.5-18.0) gm/dl Hct 48.8 (42-50) % MCV 94.0 (78-100) fl MCH 31.2 (26-32) pg MCHC 33.2 (32-36) g/dl RDW 12.7 (11.5-14.0) % Plt Count 229 (150-450) K/mm3 MPV 10.4 (7.5-11.0) fl Gran % 79.0 H (36.0-66.0) % Eos # (Auto) 0.06 (0-0.5) Absolute Lymphs (auto) 1.07 (1.0-4.6) Absolute Monos (auto) 0.83 (0.0-1.3) Lymphocytes % 11.4 L (24.0-44.0) % Monocytes % 8.8 (0.0-12.0) % Eosinophils % 0.6 (0.00-5.0) % Basophils % 0.2 (0.0-0.4) % Absolute Granulocytes 7.40 H (1.4-6.9) Basophils # 0.02 (0-0.4) Sodium (137-145) mmol/L Potassium (3.5-5.1) mmol/L Chloride (98-107) mmol/L Carbon Dioxide (22-30) mmol/L Anion Gap (5-15) MEQ/L BUN (9-20) mg/dL Creatinine (0.66-1.25) mg/dL Estimated GFR ML/MIN Glucose (74-106) mg/dL Calcium (8.4-10.2) mg/dL Total Bilirubin (0.2-1.3) mg/dL AST (17-59) U/L ALT (0-50) U/L Alkaline Phosphatase (38-126) U/L Troponin I (0.000-0.034) ng/mL NT-Pro-B Natriuret Pep (0-450) pg/mL Serum Total Protein (6.3-8.2) g/dL Albumin (3.5-5.0) g/dL Urine Color (YELLOW) Urine Appearance (CLEAR) Urine pH (5-6) Ur Specific [place] (1.005-1.025) Urine Protein (Negative) Urine Ketones (NEGATIVE) Urine Blood (0-5) Neville/ul Urine Nitrite (NEGATIVE) Urine Bilirubin (NEGATIVE) Urine Urobilinogen (0-1) mg/dL Ur Leukocyte Esterase (NEGATIVE) Urine WBC (Auto) (0-5) /HPF U Epithel Cells (Auto) (FEW) /HPF Urine Culture Reflexed (NO) Urine Glucose (NEGATIVE) mg/dL - Progress Progress: improved Progress Note: 08/12/21 12:54 Patient has nonfocal neuro exam, no signs of endorgan damage. Unremarkable work-up grossly except for mildly dehydration. Recommended increase hydration. I have given him hydralazine and pressure improved to 160s. I believe patient needs a second agent along with beta-juan and I would start him on amlodipine 5 mg for now and recommended monitoring at home and follow-up outpatient with PCP next week for reevaluation and may need adjustment in the dose of medica tions. Discussed signs symptoms of hypertensive urgency/emergency needing return to ER which he seems understanding. Also discussed in detail about lifestyle modification to help improve blood pressure. I do not think he needs any further work-up and is stable for discharge. Counseled pt/family regarding: lab results, diagnosis, need for follow-up, rad results - Departure Departure Disposition: Home Clinical Impression: Uncontrolled hypertension Condition: Stable Critical Care Time: No Referrals: DOCTOR,NO FAMILY [Primary Care Provider] - SHAWANDA BROCK [ACTIVE STAFF] - (Call today for appointment next week) Instructions: Malignant Hypertension (DC) Additional Instructions: Take low-salt diet. Increased exercise time. Monitor your blood pressure regularly, keep a log and follow-up with your primary care early next week. Return to ER if blood pressures consistently staying more than 160 systolic or if having chest pain/shortness of breath/headache/blurry vision/abdominal pain etc. Prescriptions: Amlodipine Besylate 5 mg [Norvasc 5 mg] 5 mg PO DAILY 30 Days #30 tablet
[2021-08-12 11:52] LABS: BASOPHIL % 0.2 % (0.0-0.4); Basophil (Absolute #) 0.02 (0-0.4); Eosinophil % 0.6 % (0.00-5.0); Eosinophil (Absolute #) 0.06 (0-0.5); Hematocrit 48.8 % (42-50); Hemoglobin 16.2 gm/dl (12.5-18.0); Lymphocyte (Absolute #) 1.07 (1.0-4.6); Lymphocytes % 11.4 % (24.0-44.0); Mean Corpuscular Hemoglobin 31.2 pg (26-32); Mean Corpuscular Hgb Concent. 33.2 g/dl (32-36); Mean Platelet Volume 10.4 fl (7.5-11.0); Monocyte (Absolute #) 0.83 (0.0-1.3); Monocytes % 8.8 % (0.0-12.0); Platelet Count 229 K/mm3 (150-450); Red Blood Count 5.19 M/mm3 (4.1-5.6); Red Cell Distribution Width 12.7 % (11.5-14.0); White Blood Count 9.4 K/mm3 (4.0-10.5)
--- NOTE | 2021-08-12 11:57 | XRAY ---
Indication: Uncontrolled hypertension. Comparison: February 01, 2020. Portable chest demonstrates normal heart, lungs, and bony thorax with a few incidental tiny calcified granulomas. No new/acute findings.
[2021-08-12 12:08] LABS: Appearance CLEAR (CLEAR); Bilirubin NEGATIVE (NEGATIVE); Blood NEGATIVE Ery/ul (0-5); Glucose NEGATIVE (NEGATIVE); Ketones NEGATIVE (NEGATIVE); Leukocyte Esterase NEGATIVE (NEGATIVE); Nitrite NEGATIVE (NEGATIVE); Protein,Urine Dip NEGATIVE (Negative); Specific Gravity 1.003 (1.005-1.025); Urobilinogen NEGATIVE mg/dL (0-1)
[2021-08-12 12:25] LABS: ALBUMIN 5.1 g/dL (3.5-5.0); ALKALINE PHOSPHATASE 63 U/L (38-126); ANION GAP 18.8 MEQ/L (5-15); BLOOD UREA NITROGEN 13 mg/dL (9-20); CHLORIDE 99 mmol/L (98-107); Calcium 9.5 mg/dL (8.4-10.2); Carbon Dioxide 23 mmol/L (22-30); Creatinine 1 0.81 mg/dL (0.66-1.25); EST GLOMERULAR FILTRATION RATE > 60.0 ML/MIN; Glucose 115 mg/dL (74-106); NT PRO BNP 128 pg/mL (0-450); Potassium 4.2 mmol/L (3.5-5.1); SGOT/AST 35 U/L (17-59); SGPT/ALT 25 U/L (0-50); SODIUM 136 mmol/L (137-145)
[2021-08-12 12:58] VITALS: O2SAT 100
[2021-08-12 13:07] VITALS: BP 160/110; PULSE 60
== END 2021-08-12 13:12 | disposition home or self-care (01) ==
LOC: ED 10:56
DX: I10 Essential (primary) hypertension (principal)
CPT/HCPCS: 36000; 36415; 71045; 80053; 81001; 83880; 84484; 85025; 93005; 93041; 96374; 99284; J0360

== ENCOUNTER 2025-03-16 10:56 | Emergency (ER) | payer BC ==
[2025-03-16 11:13] VITALS: TEMP 98
[2025-03-16 11:34] LABS: Absolute Neutrophil Ct (ANC) 7.21 x10^3/uL (1.78-5.38); BASOPHIL % 0.3 % (0.2-1.2); Basophil (Absolute #) 0.03 x10^3/uL (0.01-0.08); Eosinophil % 0.1 % (0.8-7.0); Eosinophil (Absolute #) 0.01 x10^3/uL (0.04-0.54); Hematocrit 44.3 % (40.1-51.0); Hemoglobin 15.6 g/dL (13.7-17.5); IMMATURE GRAN # 0.03 x10^3u/L (0.001-0.031); IMMATURE GRAN % 0.3 % (0.001-0.429); Lymphocyte (Absolute #) 0.62 x10^3/uL (1.32-3.57); Lymphocytes % 7.2 % (21.8-53.1); Mean Cell Volume 91.5 fL (79.0-92.2); Mean Corpuscular Hemoglobin 32.2 pg (25.7-32.2); Mean Corpuscular Hgb Concent. 35.2 g/dL (32.3-36.5); Mean Platelet Volume 9.8 fL (9.4-12.4); Monocyte (Absolute #) 0.71 x10^3/uL (0.30-0.82); Monocytes % 8.2 % (5.3-12.2); Neutrophil % 83.9 % (34.0-67.9); Platelet Count 279 x10^3/uL (163-337); Red Blood Count 4.84 x10^6/uL (4.63-6.08); Red Cell Distribution Width 12.6 % (11.6-14.4); White Blood Count 8.6 x10^3/uL (4.23-9.07)
[2025-03-16] MEDS ORDERED: APRESOLINE 20 MG/ML INJ ONE (11:35)
[2025-03-16] MEDS: APRESOLINE 20 MG/ML INJ IV ONE (11:36)
[2025-03-16 11:48] LABS: ANION GAP 17.6 MEQ/L (5-15); Calcium 9.9 mg/dL (8.4-10.2); Creatinine 1 0.69 mg/dL (0.66-1.25); EST GLOMERULAR FILTRATION RATE 110.7 ML/MIN; Potassium 3.4 mmol/L (3.5-5.1)
[2025-03-16] MEDS ORDERED: LOPRESSOR INJECTION IV ONE ×3 (12:46→15:39)
[2025-03-16] MEDS: LOPRESSOR INJECTION IV ONE ×2 (12:53→15:41)
--- NOTE | 2025-03-16 13:02 | ERPHSYRPT ---
- History of Present Illness Source: patient Exam Limitations: no limitations Patient Subjective Stated Complaint: C/O HTN. Denies pain or SOB. States, "I feel fine, my blood pressure is just high." Triage Nursing Assessment: Patient ambulated back to ER without difficulties. He is alert and oriented. NO SOB. Skin tone normal. Physician History: Patient was sent here from his primary care doctor's office because of blood pressure being high. Is in the 200s systolic. About a week ago he was discontinued on his current medicines started on Losartan and hydralazine. He went in for recheck today and his blood pressure was high so they sent him in here. He does not have any symptoms. He does not have a headache no chest pain or shortness of breath. He has no neurological deficits. He is completely asymptomatic.He has no visual disturbances headaches or urinary symptoms. Allergies/Adverse Reactions: No Known Drug Allergies Allergy (Verified 03/16/25 11:04) Home Medications: Escitalopram Oxalate [Lexapro] 10 mg PO DAILY 03/16/25 [History] Hydralazine HCl 25 mg PO BID 03/16/25 [History] Losartan Potassium [Cozaar] 25 mg PO DAILY 03/16/25 [History] Hx Tetanus, Diphtheria Vaccination/Date Given: No Hx Influenza Vaccination/Date Given: No Hx Pneumococcal Vaccination/Date Given: No Immunizations Up to Date: Yes Travel Risk - International Travel Have you traveled outside of the country in past 3 weeks: No - Emerging Infectious Disease Are you exhibiting symptoms associated with any current EIDs: No - Review of Systems Constitutional: No Symptoms All Other Systems: Reviewed and Negative - Past Medical History Pertinent Past Medical History: Yes Neurological History: Seizures Cardiac History: High Cholesterol, Hypertension Musculoskeletal History: Fractures Other Medical History: hyperlipidemia, rib fractures (left side), wedge compression fracture of T5-T6 vertebra - Past Surgical History Past Surgical History: Yes Genitourinary: Kidney Surgery Musculoskeletal: Orthopedic Surgery Other Surgical History: Left Kidney Removal, right shoulder, collar bone - Social History Smoking Status: Former smoker Exposure to second hand smoke: No Drug Use: none - Social Determinants of Health Will the patient participate in the screening: Yes Do you worry about a steady place to live?: No Do you have any problems with any of the following?: No known problems In the past 12 months,have you had to go without utilities?: No Transportation Issues: No Has anyone in your support network made you feel unsafe?: No Have you or anyone in your house had to go w/o enough food: No - Nursing Vital Signs Nursing Vital Signs: Initial Vital Signs Temperature 98 F 03/16/25 11:03 Pulse Rate 72 03/16/25 11:03 Respiratory Rate 17 03/16/25 11:03 Blood Pressure 216/126 03/16/25 11:03 O2 Sat by Pulse Oximetry 98 03/16/25 11:03 Pain Scale Pain Intensity 0 - Physical Exam General Appearance: no apparent distress Eye Exam: PERRL/EOMI, eyes nml inspection, No scleral icterus, No pale conjunctivae Neck Exam: normal inspection Respiratory Exam: normal breath sounds, No chest tenderness Cardiovascular Exam: regular rate/rhythm, normal heart sounds Gastrointestinal/Abdomen Exam: soft, normal bowel sounds Neurologic Exam: alert, 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, cooperative Skin Exam: normal color, warm, dry SpO2: 97 - Course EKG Interpreted by Me: RATE, NORMAL AXIS, NORMAL INTERVALS, NORMAL QRS, NORMAL ST-T Ordered Tests: Active Orders 24 hr Category Date Time Status EKG-ER Only STAT Care 03/16/25 11:21 Active BMP Stat Lab 03/16/25 11:33 Completed CBC W DIFF Stat Lab 03/16/25 11:33 Completed UA W/RFX UR CULTURE Stat Lab 03/16/25 14:03 Completed Medication Summary Generic Name Dose Route Start Last Admin Trade Name Freq PRN Reason Stop Dose Admin Metoprolol Tartrate 50 mg 03/17/25 16:18 03/16/25 16:23 Metoprolol Tartrate 50 Mg Tablet PO 03/17/25 16:19 50 mg ONCE ONE Administration Discontinued Medications Generic Name Dose Route Start Last Admin Trade Name Freq PRN Reason Stop Dose Admin Hydralazine HCl 20 mg 03/16/25 11:22 03/16/25 11:36 Hydralazine Hcl 20 Mg/Ml Vial IV 03/16/25 11:23 20 mg STAT ONE Administration Hydralazine HCl Confirm 03/16/25 11:35 Hydralazine Hcl 20 Mg/Ml Vial Administered 03/16/25 11:36 Dose 20 mg .ROUTE .STK-MED ONE Hydralazine HCl 50 mg 03/16/25 14:09 03/16/25 14:34 Hydralazine Hcl 25 Mg Tablet PO 03/16/25 14:10 50 mg ONCE ONE Administration Metoprolol Tartrate 5 mg 03/16/25 12:44 03/16/25 12:53 Metoprolol Tartrate 5 Mg/5 Ml Vial IV 03/16/25 12:45 5 mg STAT ONE Administration Metoprolol Tartrate Confirm 03/16/25 12:46 Metoprolol Tartrate 5 Mg/5 Ml Vial Administered 03/16/25 12:47 Dose 5 mg IV .STK-MED ONE Metoprolol Tartrate Confirm 03/16/25 12:51 Metoprolol Tartrate 5 Mg/5 Ml Vial Administered 03/16/25 12:52 Dose 5 mg IV .STK-MED ONE Metoprolol Tartrate 5 mg 03/16/25 15:25 03/16/25 15:41 Metoprolol Tartrate 5 Mg/5 Ml Vial IV 03/16/25 15:26 5 mg STAT ONE Administration Metoprolol Tartrate Confirm 03/16/25 15:39 Metoprolol Tartrate 5 Mg/5 Ml Vial Administered 03/16/25 15:40 Dose 5 mg IV .STK-MED ONE Metoprolol Tartrate Confirm 03/16/25 16:22 Metoprolol Tartrate 50 Mg Tablet Administered 03/16/25 16:23 Dose 50 mg .ROUTE .STK-MED ONE Lab/Rad Data: Laboratory Result Diagrams 03/16/25 11:33 03/16/25 11:33 Laboratory Results 03/16/25 03/16/25 03/16/25 Range/Units 14:03 11:33 11:33 WBC 8.6 (4.23-9.07) x10^3/uL RBC 4.84 (4.63-6.08) x10^6/uL Hgb 15.6 (13.7-17.5) g/dL Hct 44.3 (40.1-51.0) % MCV 91.5 (79.0-92.2) fL MCH 32.2 (25.7-32.2) pg MCHC 35.2 (32.3-36.5) g/dL RDW 12.6 (11.6-14.4) % Plt Count 279 (163-337) x10^3/uL MPV 9.8 (9.4-12.4) fL Gran % 83.9 H (34.0-67.9) % Immature Gran % (Auto) 0.3 (0.001-0.429) % Nucleat RBC Rel Count 0.0 (0.00-0.2) % Eos # (Auto) 0.01 L (0.04-0.54) x10^3/uL Immature Gran # (Auto) 0.03 (0.001-0.031) x10^3u/L Absolute Lymphs (auto) 0.62 L (1.32-3.57) x10^3/uL Absolute Monos (auto) 0.71 (0.30-0.82) x10^3/uL Absolute Nucleated RBC 0.00 (0.00-0.012) x10^3u/L Lymphocytes % 7.2 L (21.8-53.1) % Monocytes % 8.2 (5.3-12.2) % Eosinophils % 0.1 L (0.8-7.0) % Basophils % 0.3 (0.2-1.2) % Absolute Granulocytes 7.21 H (1.78-5.38) x10^3/uL Basophils # 0.03 (0.01-0.08) x10^3/uL Sodium 140 (135-145) mmol/L Potassium 3.4 L (3.5-5.1) mmol/L Chloride 103 (98-107) mmol/L Carbon Dioxide 24 (22-30) mmol/L Anion Gap 17.6 H (5-15) MEQ/L BUN 9 (9-20) mg/dL Creatinine 0.69 (0.66-1.25) mg/dL Estimated GFR 110.7 ML/MIN Glucose 142 H (74-106) mg/dL Calcium 9.9 (8.4-10.2) mg/dL Urine Color Yellow (Yellow) Urine Appearance Clear (Clear) Urine pH 6.5 (4.6-8.0) Ur Specific [place] 1.015 (1.005-1.030) Urine Protein Trace A (Negative) Urine Glucose (UA) Negative (Negative) mg/dL Urine Ketones Negative (Negative) Urine Blood Negative (Negative) Urine Nitrite Negative (Negative) Urine Bilirubin Negative (Negative) Urine Urobilinogen 1.0 A (0.2) mg/dL Ur Leukocyte Esterase Negative (Negative) U Hyaline Cast (Auto) NONE SEEN (0-2) /LPF Urine Microscopic RBC 0-2 (0-5) /HPF Urine Microscopic WBC 0-2 (0-5) /HPF Ur Epithelial Cells None Seen (None Seen) /HPF Urine Bacteria None Seen (None Seen) /HPF Urine Culture Reflexed NO (NO) - Progress Progress Note: Patient's kidney function look good on his chemistry panel. He did not have any visual or ocular disturbances. He was still able to produce urine. I do not think he has any endorgan damage. I started I given him 20 mg of hydralazine. That brought it down about 30 or 40 points. He is still running around 180s. I tried 5 of Lopressor that did not really help much. I went ahead and gave him 50 mg orally of hydralazine and we are monitoring him now.So far he is running around 180/120. He is still asymptomatic.He is down to 170/100. I do not think is a get much better than that. I think that he is stable enough to go home. I am going to adjust his medications. I am going to up his hydralazine dose and add some metoprolol. He is going to monitor his blood pressures and follow-up with his doctor in the next 2 to 3 days. He will return if his symptoms worsen or if there not controlling his blood pressure. I instructed him if it gets much over 180/110 on a consistent basis to come back. There is no endorgan damage. 03/16/25 15:03 03/16/25 17:39 03/16/25 17:40 Medical Desision Making - Risk of complications Low Risk: Low risk of morbidity from additional dx testing or treatment - Departure Departure Disposition: Home Clinical Impression: Hypertensive urgency Condition: Stable Critical Care Time: No Referrals: ANAI BROCK [Primary Care Provider, PULMONARY MEDICINE] - Follow up/PCP as directed Instructions: Malignant Hypertension (DC) Additional Instructions: Add the metoprolol to your current regimen (This will be phoned into your pharmacy) and increase your hydralazine dose to 50 mg 3 times a day.
[2025-03-16 14:16] LABS: Appearance Clear (Clear); Bacteria None Seen /HPF (None Seen); Bilirubin Negative (Negative); Blood Negative (Negative); Epithelial Cells None Seen /HPF (None Seen); Glucose, Urine Negative (Negative); Hyaline Casts NONE SEEN /LPF (0-2); Ketones Negative (Negative); Leukocyte Esterase Negative (Negative); Nitrite Negative (Negative); Ph 6.5 (4.6-8.0); Protein,Urine Dip Trace (Negative); RBC 0-2 /HPF (0-5); Specific Gravity 1.015 (1.005-1.030); WBC 0-2 /HPF (0-5)
[2025-03-16] MEDS: Apresoline 25 MG TABLET PO ONE (14:34)
[2025-03-16] MEDS ORDERED: Lopressor 50 MG ONE (16:22)
[2025-03-16] MEDS: Lopressor 50 MG PO ONE (16:23)
[2025-03-16 17:47] VITALS: BP 166/123; PULSE 59; RESP 19; O2SAT 98
== END 2025-03-16 17:50 | disposition home or self-care (01) ==
LOC: ED 10:56
DX: I16.0 Hypertensive urgency (principal); I10 Essential (primary) hypertension; Z79.899 Other long term (current) drug therapy
CPT/HCPCS: 36415; 80048; 81001; 85025; 93005; 96374; 96375; 99284; J0360; A9270-GY